=== PATIENT | female | born 1975 | race Caucasian/White ===

== ENCOUNTER → 2017-09-18 08:05 | Outpatient (CLI) | payer OTHER, SELFPAY ==
[2017-09-18 08:46] LABS: Add Manual Diff / Slide Review NO; Basophils Percent Auto 1.3 % (0-2); Hematocrit 39.1 % (36-46); Hemoglobin 13.4 g/dL (12.0-16.0); Lymphocytes Percent Auto 40.4 % (25-40); Mean Corpuscular HGB Conc 34.4 % (30-36); Mean Corpuscular Hemoglobin 30.9 PG (26-34); Mean Corpuscular Volume 89.9 fL (80-100); Monocytes Percent Auto 7.9 % (3-14); Neutrophils Absolute Auto 2100 /uL (3000-5900); Neutrophils Percent Auto 48.4 % (50-75); Platelet Count 269 X10^3/uL (150-400); Red Blood Cell Count 4.35 X10^6/uL (4.0-5.2); White Blood Cell Count 4.4 X10^3/uL (4.5-11.0)
[2017-09-18 08:54] LABS: Alanine Aminotransferase 17 IU/L (9-52); Albumin 4.8 g/dL (3.5-5.0); Albumin Globulin Ratio 1.7 (1.0-2.8); Alkaline Phosphatase 44 U/L (38-126); Aspartate Aminotransferase 19 IU/L (14-36); BUN Creatinine Ratio 21.4 (6-22); Bilirubin Total 0.5 mg/dL (0.2-1.3); Blood Urea Nitrogen 15 mg/dL (7-17); Calcium 9.4 mg/dL (8.4-10.2); Carbon Dioxide 29 mmol/L (22-32); Chloride 102 mmol/L (98-107); Cholesterol 236 mg/dL (140-199); Estimated Glomerular Filt Rate > 60.0 mL/min (>60); Globulin 2.9 g/dL (1.7-4.1); Glucose 94 mg/dL (70-100); HDL Cholesterol 71 mg/dL (40-60); HEMOLYSIS < 15 (0-50); LDL Cholesterol Calculated 145 mg/dL (<100); Potassium 4.3 mmol/L (3.4-5.1); Sodium 141 mmol/L (137-145); Total Protein 7.7 g/dL (6.3-8.2); Triglycerides 98 mg/dL (35-150); Uric Acid 4.3 mg/dL (2.5-6.2)
[2017-09-18 09:25] LABS: Free T3, Triiodothyronine Free 2.51 pg/mL (2.77-5.27); Free T4, Direct Thyroxine 0.94 ng/dL (0.78-2.19)
[2017-09-18 09:39] LABS: Thyroid Stimulating Hormone 1.45 uIU/mL (0.47-4.68)
== END ==
PROVIDERS: PCP Physician Assistant; Visit Provider Physician Assistant
DX: E78.5 Hyperlipidemia, unspecified (principal); M25.50 Pain in unspecified joint; R53.83 Other fatigue
CPT/HCPCS: 36415; 80053; 80061; 84439; 84443; 84481; 84550; 85025

== ENCOUNTER → 2018-02-27 13:26 | Outpatient (CLI) | payer OTHER, SELFPAY ==
--- NOTE | 2018-02-27 | DI.RAD.S_ITS ---
PROCEDURE: XR HAND RT MIN 3V INDICATIONS: PAIN IN RIGHT FINGER TECHNIQUE: 3 views of the hand(s) acquired. COMPARISON: None. FINDINGS: Bones: No fractures or dislocations. Carpal bones are normally aligned. No suspicious bony lesions. Soft tissues: No suspicious soft tissue calcifications. IMPRESSION: No fracture. If the patient's pain or other symptoms persist, consider further evaluation with MRI Dictated by: Caden Stafford M.D. on 02/27/2018 at 15:23 Approved by: Caden Stafford M.D. on 02/27/2018 at 15:25
== END ==
PROVIDERS: PCP Physician Assistant; Visit Provider Family Medicine
DX: M79.644 Pain in right finger(s) (principal)
CPT/HCPCS: 73130

== ENCOUNTER → 2018-05-13 10:14 | Outpatient (CLI) | payer OTHER, SELFPAY ==
--- NOTE | 2018-05-13 | DI.MG.S_ITS ---
BILATERAL DIGITAL SCREENING MAMMOGRAM 3D/2D WITH CAD: 05/13/2018 CLINICAL: Routine screening. Family history of breast cancer. Comparison is made to exams dated: 03/05/2017 mammogram, 02/08/2016 mammogram, and 11/30/2014 mammogram - [facility]. The tissue of both breasts is heterogeneously dense. This may lower the sensitivity of mammography. Current study was also evaluated with a Computer Aided Detection (CAD) system. No significant masses, calcifications, or other findings are seen in either breast. There has been no significant interval change. IMPRESSION: NEGATIVE There is no mammographic evidence of malignancy. A 1 year screening mammogram is recommended. This exam was interpreted at Station ID: [id number]. NOTE: For mammograms, a report in lay terms will be sent to the patient. Approximately 15% of breast malignancies will not be visualized mammographically. In the management of a palpable breast mass, a negative mammogram must not discourage biopsy of a clinically suspicious lesion. Electronically Signed By: Rosa Maria clay/kassie:05/13/2018 12:09:35 letter sent: Normal Exam ACR BI-RADS Category 1: Negative 3341F
== END ==
PROVIDERS: Visit Provider Physician Assistant
DX: Z12.31 Encounter for screening mammogram for malignant neoplasm of breast (principal); Z80.3 Family history of malignant neoplasm of breast
CPT/HCPCS: 77063; 77067

== ENCOUNTER → 2019-09-22 16:08 | Outpatient (CLI) | payer OTHER, SELFPAY ==
--- NOTE | 2019-09-22 16:10 | DI.MG.S_ITS ---
BILATERAL DIGITAL SCREENING MAMMOGRAM 3D/2D WITH CAD: 09/22/2019 CLINICAL: Routine screening. Family history of breast cancer. Comparison is made to exams dated: 05/13/2018 mammogram, 03/05/2017 mammogram, and 02/08/2016 mammogram - [facility]. The tissue of both breasts is heterogeneously dense. This may lower the sensitivity of mammography. Current study was also evaluated with a Computer Aided Detection (CAD) system. No significant masses, calcifications, or other findings are seen in either breast. There has been no significant interval change. IMPRESSION: NEGATIVE There is no mammographic evidence of malignancy. A 1 year screening mammogram is recommended. This exam was interpreted at Station ID: [id number]. NOTE: For mammograms, a report in lay terms will be sent to the patient. Approximately 15% of breast malignancies will not be visualized mammographically. In the management of a palpable breast mass, a negative mammogram must not discourage biopsy of a clinically suspicious lesion. Electronically Signed By: Ricardo merritt/kassie:09/22/2019 17:09:19 letter sent: Normal Exam ACR BI-RADS Category 1: Negative 3341F
== END ==
PROVIDERS: PCP Physician Assistant; Referring Provider Physician Assistant; Visit Provider Family Medicine
DX: Z12.31 Encounter for screening mammogram for malignant neoplasm of breast (principal); Z80.3 Family history of malignant neoplasm of breast
CPT/HCPCS: 77063; 77067

== ENCOUNTER → 2020-03-03 10:31 | Outpatient (CLI) | payer OTHER, SELFPAY ==
[2020-03-03] MEDS: COVID-19 VACC #1, MRNA(MOD) 100 MCG/0.5 ML VIAL IM (10:39)
== END ==
PROVIDERS: PCP Physician Assistant; Visit Provider Internal Medicine
DX: Z23 Encounter for immunization (principal)
CPT/HCPCS: 0011A; 91301

== ENCOUNTER → 2020-03-31 10:44 | Outpatient (CLI) | payer OTHER, SELFPAY ==
[2020-03-31] MEDS: COVID-19 VACC #2, MRNA(MOD) 100 MCG/0.5 ML VIAL IM (10:50)
== END ==
PROVIDERS: PCP Physician Assistant; Visit Provider Internal Medicine
DX: Z23 Encounter for immunization (principal)
CPT/HCPCS: 0012A; 91301

== ENCOUNTER → 2020-11-06 13:08 | Outpatient (ROUT) | payer OTHER, SELFPAY ==
[2020-11-06 16:11] LABS: COVID19 -Nasal RAPID Negative (Negative)
== END ==
PROVIDERS: PCP Physician Assistant; Visit Provider Family Medicine
DX: Z20.822 Contact with and (suspected) exposure to COVID-19 (principal)
CPT/HCPCS: 87635

== ENCOUNTER → 2021-03-05 09:26 | Outpatient (CLI) | payer OTHER, SELFPAY ==
--- NOTE | 2021-03-05 | DI.MG.S_ITS ---
BILATERAL DIGITAL SCREENING MAMMOGRAM 3D/2D WITH CAD: 03/05/2021 CLINICAL: Routine screening. Family history of breast cancer. Comparison is made to exams dated: 09/22/2019 mammogram, 05/13/2018 mammogram, and 03/05/2017 mammogram - [facility]. The tissue of both breasts is heterogeneously dense. This may lower the sensitivity of mammography. Current study was also evaluated with a Computer Aided Detection (CAD) system. No significant masses, calcifications, or other findings are seen in either breast. There has been no significant interval change. IMPRESSION: NEGATIVE There is no mammographic evidence of malignancy. A 1 year screening mammogram is recommended. This exam was interpreted at Station ID: [id number]. NOTE: For mammograms, a report in lay terms will be sent to the patient. Approximately 15% of breast malignancies will not be visualized mammographically. In the management of a palpable breast mass, a negative mammogram must not discourage biopsy of a clinically suspicious lesion. Electronically Signed By: Pavan rush/kassie:03/05/2021 10:55:57 letter sent: Normal Exam ACR BI-RADS Category 1: Negative 3341F
== END ==
PROVIDERS: PCP Family Medicine; Referring Provider Family Medicine; Visit Provider Family Medicine
DX: Z12.31 Encounter for screening mammogram for malignant neoplasm of breast (principal); Z80.3 Family history of malignant neoplasm of breast
CPT/HCPCS: 77063; 77067

== ENCOUNTER → 2022-02-19 13:56 | Outpatient (CLI) | payer OTHER, SELFPAY ==
--- NOTE | 2022-02-26 16:23 | DIET.CONS ---
Dietary Consultation Note Pt seen on 02/19/22 46Y perimenopausal F attending RD visit for help with HLD and overweight (BMI 26.5). 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 Usual Day: first meal between 11-12pm Lunch: greens with 4-5oz ground chicken and peppers and avocado, tiny bit of sour cream Sn 3:30pm or 4pm: cheese and crackers or hummus c crackers Dinner: farro salad with chard, kohli peppers, leeks, lemon dressing- 4-5oz lean pork chop stops eating 7:30-8pm and fasts until 11am drinks water and coffee on splurge-turkey sandwich with avocado on GF bread Snacks at night: chocolate squares or dried pineapple, popcorn tried keeping to 1200-1400kcals/d on [employer] and [employer]. Pt would like sustainable plan she can follow for the rest of her life. RD Impression: Pt consuming 2 meals and 1 snack daily, generally following 16h fast. Pt with very healthy nutrient rich diet, however, possibly low in dietary fiber depending on the day (often relies on large salads or saut?ed greens for fiber if not eating beans/whole grains). Pt diet moderately low in carbohydrates depending on the day, but adequate in dietary protein. Nutrition Dx: altered nutrition related laboratory values (LDL, BMI) r/t inadequate intake dietary fiber and metabolism changes in menopause aeb pt with BMI 26.5, pt with elevated LDL cholesterol, pt reliant on leafy greens for fiber intake. Interventions: 1. Reiterated pts good diet and exercise routine. Educated pt on menopausal changes including weight gain and fat redistribution. 2. Educated pt on dietary fiber sources and goal of 30g/d. Rec pt have 10g c lunch, 10g c dinner and 10g with snacks to distribute fiber throughout day. 3. Rec pt consume protein following workout ~20g in form of choice. 4. Educated about hunger/fullness scale. Pt will eat at 3 and stop at 8 and notice when she eats at 5. F/u in 4w to continue education and monitor progress. Electronically Signed by: Bailey Monterroso 02/19/22 16:23 Clinical Dietitian [address] [id number]
== END ==
PROVIDERS: Absent Provider Family Medicine; Family Provider Family Medicine; PCP Family Medicine; Referring Provider Family Medicine; Visit Provider Family Medicine
DX: E78.5 Hyperlipidemia, unspecified (principal); E66.3 Overweight; Z68.26 Body mass index [BMI] 26.0-26.9, adult; Z71.3 Dietary counseling and surveillance
CPT/HCPCS: 97802

== ENCOUNTER → 2022-03-04 14:27 | Outpatient (CLI) | payer OTHER, SELFPAY ==
--- NOTE | 2022-03-04 14:29 | DIET.OUTPTC ---
Dietary Outpatient Consultation Note Consultation Date: 03/04/2022 46y F attending f/u nutrition visit for hyperlipidemia. Pt reports usual day includes 20g fiber, she has mindfully increased this to 30g and noticed she feels much phillips after a meal. Pt choosing healthy, whole fiber foods such as farro, artichoke hearts and beans. Pt notices BMs are regular without any issues or excessive gassiness. Pt getting lipid labs drawn this week, will review in 6w to adjust interventions as needed. Electronically Signed by: Bailey Monterroso 03/04/22 14:29 Clinical Dietitian [address] [id number]
== END ==
PROVIDERS: Family Provider Family Medicine; PCP Family Medicine; Referring Provider Family Medicine; Visit Provider Family Medicine
DX: E78.5 Hyperlipidemia, unspecified (principal); Z71.3 Dietary counseling and surveillance
CPT/HCPCS: 97803

== ENCOUNTER → 2022-03-08 09:11 | Outpatient (CLI) | payer OTHER, SELFPAY ==
[2022-03-08 10:52] LABS: Cholesterol 216 mg/dL (140-199); HDL Cholesterol 66 mg/dL (40-60); LDL Cholesterol Calculated 136 mg/dL (<100); Triglycerides 71 mg/dL (35-150)
[2022-03-08 11:21] LABS: TSH w/ Reflex to FT4 0.94 uIU/mL (0.47-4.68)
== END ==
PROVIDERS: Family Provider Family Medicine; PCP Family Medicine; Referring Provider Family Medicine; Visit Provider Family Medicine
DX: E78.5 Hyperlipidemia, unspecified (principal); F41.9 Anxiety disorder, unspecified; R00.2 Palpitations
CPT/HCPCS: 36415; 80061; 84443

== ENCOUNTER → 2022-06-11 11:50 | Outpatient (CLI) | payer OTHER, SELFPAY ==
--- NOTE | 2022-06-11 11:52 | DI.MG.S_ITS ---
BILATERAL DIGITAL SCREENING MAMMOGRAM 3D/2D WITH CAD: 06/11/2022 CLINICAL: Routine screening. Family history of breast cancer. Comparison is made to exams dated: 03/05/2021 mammogram, 09/22/2019 mammogram, and 05/13/2018 mammogram - [facility]. Both breasts are heterogeneously dense, which may obscure small masses (category c / 51-75% glandular tissue). Current study was also evaluated with a Computer Aided Detection (CAD) system. No significant masses, calcifications, or other findings are seen in either breast. There has been no significant interval change. IMPRESSION: NEGATIVE There is no mammographic evidence of malignancy. A 1 year screening mammogram is recommended. Based on the Tyrer Cuzick model (a risk assessment model) the patient's lifetime risk is 15.7% and her 10 year risk is 3.6%. According to the ACR, ACS, and NCCN guidelines, an annual breast MRI exam along with mammogram is recommended if the patient's lifetime risk is 20% or greater. This exam was interpreted at Station ID: [id number]. NOTE: For mammograms, a report in lay terms will be sent to the patient. Approximately 15% of breast malignancies will not be visualized mammographically. In the management of a palpable breast mass, a negative mammogram must not discourage biopsy of a clinically suspicious lesion. Electronically Signed By: Rosa Maria clay/kassie:06/11/2022 12:27:35 letter sent: Normal Exam ACR BI-RADS Category 1: Negative 3341F
== END ==
PROVIDERS: Family Provider Family Medicine; PCP Family Medicine; Referring Provider Family Medicine; Visit Provider Family Medicine
DX: Z12.31 Encounter for screening mammogram for malignant neoplasm of breast (principal); Z80.3 Family history of malignant neoplasm of breast
CPT/HCPCS: 77063; 77067

== ENCOUNTER 2023-02-20 09:38 | Day surgery (SDC) | payer OTHER, SELFPAY ==
[2023-02-20] MEDS: LACTATED RINGERS 1,000 ML 100 ML IV (10:21)
[2023-02-20 10:23] VITALS: BP 129/79; PULSE 79; RESP 16; TEMP 37; O2SAT 96; BMI 26.2
--- NOTE | 2023-02-20 11:11 | P.HP_ITS ---
History of Present Illness History of Present Illness Chief complaint: Colonoscopy Narrative: Ibeth is a 47-year-old woman here for colonoscopy for colon cancer screening. She has never had 1 before. No family history of colon cancer. She has a tendency towards constipation and she will occasionally notice bright red blood after a hard bowel movement [facility] Medical History (Updated 02/20/23 @ 11:12 by Shashi Blair MD) Vertigo (~2019) Palpitations (~2020) Hx of fracture of nose (Unknown) Hyperlipemia (Unknown) Anxiety (Unknown) Allergic rhinitis (Unknown) Generalized headaches (Unknown) Chickenpox (1983) Frequent infections (Unknown) Abnormal Pap smear of cervix (1991) Irregular heart beat (Unknown) Surgical History (Updated 03/29/21 @ 19:17 by Samia Alcazar) Anesthesia Status post tubal ligation (2007) Family History (Updated 03/29/21 @ 19:17 by Samia Alcazar) Father History of smoking History of alcohol abuse History of drug abuse Cancer Grandmother History of breast cancer Mother History of hypertension History of alcohol abuse History of drug abuse Social History household members: spouse Smoking Status: Never smoker second hand exposure: No alcohol intake: current substance use type: marijuana (I smoke weed once in a blue chew.) Meds Home Medications and Allergies Home Medications Medication Instructions Recorded Confirmed Type Biest 0.25 mg topical DAILY #30 mg 07/16/22 12/30/22 Rx DHEA 5 mg PO DAILY #30 caps 07/16/22 12/30/22 Rx Gut survival Probiotic 1 cap PO DAILY #30 caps 07/16/22 12/30/22 Rx Progesterone 75 mg PO .qhs #30 caplets 10/08/22 12/30/22 Rx sodium,potassium,mag sulfates 17.5 See Rx Instructions PO .COMPLEX 12/17/22 12/30/22 Rx gram-3.13 gram-1.6 gram oral soln #354 mL (Suprep Bowel Prep Kit) alprazolam 0.25 mg tablet 0.25 mg PO .QDAY PRN anxiety #30 12/30/22 12/30/22 Rx tabs ibuprofen 600 mg tablet 600 mg PO TID PRN pain #90 tabs 12/30/22 12/30/22 Rx methocarbamol 500 mg tablet 500 mg PO TID PRN muscle spasm #30 12/30/22 12/30/22 Rx tabs triamcinolone acetonide 0.1 % See Rx Instructions topical BID 12/30/22 12/30/22 Rx topical cream #30 grams ondansetron HCl 4 mg tablet 4 mg PO Q8H PRN nausea and 01/14/23 Rx vomiting #30 tabs Allergies Allergy/AdvReac Type Severity Reaction Status Date / Time No Known Drug Allergies Allergy Verified 12/30/22 15:57 Exam Vital Signs (past 8 hours): - 02/20/23 10:23 Temperature 98.6 F Pulse Rate 79 Respiratory Rate 16 Blood Pressure 129/79 Pulse Oximetry 96 Oxygen Delivery Method Room Air Oxygen Delivery Method Room Air Const General: healthy appearing and No acute distress Resp Effort & Inspection: normal respiratory effort Assessment & Plan Assessment and plan (1) Colon cancer screening: Status: Acute Plan We reviewed the risks and benefits of colonoscopy for colon cancer screening and she would like to proceed.
--- NOTE | 2023-02-20 12:34 | PM.OP.COLON ---
Operative Date/Time/Diagnoses Date of procedure: 02/20/23 Time of procedure: 12:34 Pre-op diagnosis: Colon cancer screening Post-op diagnosis: same Procedure & Clinicians Study performed: Colonoscopy Same procedure as scheduled: Yes Surgeon: Shashi Blair Procedure Notes Procedure in detail: Surgeon: Shashi Blair MD Anesthesia: Dany Colon D.O. Procedure: The patient was brought to the endoscopy suite, placed in left lateral decubitus position. The patient was connected to monitoring devices. A time-out was performed. Sedation was administered. Once the patient was adequately sedated, a digital rectal exam was performed and was normal. The scope was then inserted and advanced to the cecum where the appendiceal orifice was identified and photographed. The scope was then slowly withdrawn over greater than 6 minutes. The mucosa was thoroughly inspected. No abnormalities were seen. The scope was retroflexed in the rectum. No abnormalities were seen in the rectum. The scope was straightened and removed. The patient was awakened and brought to recovery. Scope withdrawal time: 8 minutes Sedation time: 12 minutes EBL: 0 Findings: Normal colon Post-procedure Recommendations: Colonoscopy in 10 years Disposition: PACU
[2023-02-20 12:36] VITALS: BP 114/79; PULSE 84; RESP 16; TEMP 36.6; O2SAT 98
[2023-02-20 12:39] VITALS: BP 125/83; PULSE 76; RESP 11; O2SAT 98
[2023-02-20 12:45] VITALS: BP 100/77; PULSE 68; RESP 16; TEMP 36.7; O2SAT 98
== END 2023-02-20 12:57 | disposition home or self-care (01) ==
PROVIDERS: Family Provider Family Medicine; PCP Family Medicine; Referring Provider Surgery; Visit Provider Surgery
PROC: 0DJD8ZZ Inspection of Lower Intestinal Tract, Via Natural or Artificial Opening Endoscopic (ICD-10-PCS; CPT 45378; principal; 2023-02-20 10:45)
DX: Z12.11 Encounter for screening for malignant neoplasm of colon (principal)
CPT/HCPCS: 45378; J2704

== ENCOUNTER → 2023-03-21 10:16 | Outpatient (CLI) | payer OTHER, SELFPAY ==
[2023-03-21 11:39] LABS: Add Manual Diff / Slide Review NO; Basophils Absolute Auto 100 /uL (0-100); Basophils Percent Auto 1.1 % (0-2); Eosinophils Absolute Auto 0 /uL (0-450); Hematocrit 38.1 % (36-46); Hemoglobin 12.9 g/dL (12.0-16.0); Lymphocytes Absolute Auto 1800 /uL (1100-4500); Lymphocytes Percent Auto 39.1 % (25-40); Mean Corpuscular HGB Conc 33.8 % (30-36); Mean Corpuscular Hemoglobin 30.2 PG (26-34); Mean Corpuscular Volume 89.3 fL (80-100); Monocytes Absolute Auto 400 /uL (0-900); Monocytes Percent Auto 8.9 % (3-14); Neutrophils Absolute Auto 2300 /uL (1500-7000); Neutrophils Percent Auto 49.9 % (50-75); Platelet Count 281 X10^3/uL (150-400); Red Blood Cell Count 4.26 X10^6/uL (4.0-5.2); White Blood Cell Count 4.6 X10^3/uL (4.5-11.0)
[2023-03-21 11:51] LABS: Alanine Aminotransferase 20 IU/L (<35); Albumin 4.6 g/dL (3.5-5.0); Albumin Globulin Ratio 1.5 (1.0-2.8); Alkaline Phosphatase 44 U/L (38-126); Aspartate Aminotransferase 25 IU/L (14-36); BUN Creatinine Ratio 19.3 (6-22); Bilirubin Total 0.6 mg/dL (0.2-1.3); Blood Urea Nitrogen 11 mg/dL (7-17); Calcium 8.8 mg/dL (8.4-10.2); Carbon Dioxide 24 mmol/L (22-32); Chloride 105 mmol/L (98-107); Cholesterol 224 mg/dL (140-199); Estimated Glomerular Filt Rate > 60 mL/min (>60); Globulin 3.1 g/dL (1.7-4.1); Glucose 95 mg/dL (70-100); HDL Cholesterol 68 mg/dL (40-60); HEMOLYSIS < 15 (0-50); LDL Cholesterol Calculated 143 mg/dL (<100); Lactate Dehydrogenase 139 U/L (120-246); Potassium 4.6 mmol/L (3.4-5.1); Sodium 140 mmol/L (137-145); Total Protein 7.7 g/dL (6.3-8.2); Triglycerides 67 mg/dL (35-150)
[2023-03-21 12:22] LABS: TSH w/ Reflex to FT4 0.66 uIU/mL (0.47-4.68)
[2023-03-23 09:40] LABS: Apolipoprotein B 104 mg/dL (<90)
== END ==
PROVIDERS: Family Provider Family Medicine; PCP Family Medicine; Referring Provider Family Medicine; Visit Provider Family Medicine
DX: E78.5 Hyperlipidemia, unspecified (principal); R00.2 Palpitations; E66.3 Overweight; F41.9 Anxiety disorder, unspecified
CPT/HCPCS: 36415; 80053; 80061; 82172; 83615; 84443; 85025

== ENCOUNTER → 2023-09-10 07:59 | Outpatient (CLI) | payer OTHER, SELFPAY ==
--- NOTE | 2023-09-10 08:00 | DI.MG.S_ITS ---
BILATERAL DIGITAL SCREENING MAMMOGRAM 3D/2D WITH CAD: 09/10/2023 CLINICAL: Routine screening. Family history of breast cancer. Comparison is made to exams dated: 06/11/2022 mammogram, 03/05/2021 mammogram, 09/22/2019 mammogram, and 05/13/2018 mammogram - [facility]. Both breasts are heterogeneously dense, which may obscure small masses (category c / 51-75% glandular tissue). Current study was also evaluated with a Computer Aided Detection (CAD) system. No significant masses, calcifications, or other findings are seen in either breast. There has been no significant interval change. IMPRESSION: NEGATIVE There is no mammographic evidence of malignancy. A 1 year screening mammogram is recommended. Based on the Tyrer Cuzick model (a risk assessment model) the patient's lifetime risk is 15.6% and her 10 year risk is 3.7%. According to the ACR, ACS, and NCCN guidelines, an annual breast MRI exam along with mammogram is recommended if the patient's lifetime risk is 20% or greater. This exam was interpreted at Station ID: [id number]. NOTE: For mammograms, a report in lay terms will be sent to the patient. Approximately 15% of breast malignancies will not be visualized mammographically. In the management of a palpable breast mass, a negative mammogram must not discourage biopsy of a clinically suspicious lesion. Electronically Signed By: Kiran collado/kassie:09/10/2023 11:00:38 letter sent: Normal Exam ACR BI-RADS Category 1: Negative 3341F
== END ==
PROVIDERS: Family Provider Family Medicine; PCP Family Medicine; Referring Provider Family Medicine; Visit Provider Family Medicine
DX: Z12.31 Encounter for screening mammogram for malignant neoplasm of breast (principal); Z80.3 Family history of malignant neoplasm of breast; R92.333 Mammographic heterogeneous density, bilateral breasts
CPT/HCPCS: 77063; 77067

== ENCOUNTER → 2023-12-15 08:32 | Outpatient (CLI) | payer OTHER, SELFPAY ==
[2023-12-15 09:52] LABS: Cholesterol 234 mg/dL (140-199); HDL Cholesterol 91 mg/dL (40-60); LDL Cholesterol Calculated 130 mg/dL (<100); Triglycerides 63 mg/dL (35-150)
[2023-12-16 03:12] LABS: Apolipoprotein B 99 mg/dL (<90)
== END ==
PROVIDERS: Family Provider Family Medicine; PCP Family Medicine; Referring Provider Family Medicine; Visit Provider Family Medicine
DX: E78.5 Hyperlipidemia, unspecified (principal); E66.3 Overweight; Z68.25 Body mass index [BMI] 25.0-25.9, adult; F41.9 Anxiety disorder, unspecified
CPT/HCPCS: 36415; 80061; 82172

== ENCOUNTER 2024-06-29 11:24 | Emergency (ER) | payer OTHER, SELFPAY ==
[2024-06-29 11:26] VITALS: BP 149/92; PULSE 75; RESP 16; TEMP 37; O2SAT 100; BMI 25.2
--- NOTE | 2024-06-29 11:49 | ED_ITS ---
HPI - GI Bleed <Johanna Ochoa PA-C - Last Filed: 06/29/24 14:43> General Chief complaint: GI Bleed Stated complaint: rectal bleeding Time Seen by Provider: 06/29/24 11:48 Source: patient Mode of arrival: Ambulatory History of Present Illness HPI Narrative: This is a 49-year-old woman with a history of previous rectal bleeding, hyperlipidemia, anxiety who presents with concern for 3 episodes of bright red blood per rectum. Patient states this 1st occurred on Friday or of last week about 5 days ago. And occurred again on Friday and again this morning. She has otherwise been having normal bowel movements. She states that the bleeding happens after bowel movements and there does not seem to be blood mixed in with her stool. She does endorse a distant history of problems with GERD but states these symptoms have been well controlled with a probiotic and a diet that includes fermented foods. She endorses that she is perimenopausal and her periods are generally fairly regular every 24-28 days and that most recent symptoms started shortly after her last menses ended last week. She does state that a few days prior to these symptoms starting last week she also developed some tenderness and swelling to her breasts on the sides more pronounced on the left. She has an ultrasound scheduled to evaluate this tomorrow and has already spoken to her PCP about it. She states that the last time she had rectal bleeding this also happened. She has never had an upper endoscopy but states that her colonoscopy last year was normal. She notes frustration over nondiagnostic previous ER visits and is interested in having testing done to evaluate for gastrointestinal cancer. She denies any family history of this. She is disinterested in having a CT scan today as she had 1 a little over a year ago that was negative other than some mild colonic wall thickening. She denies any abdominal or flank pain, nausea, vomiting, coughing or vomiting blood, urinary symptoms, fevers, chills, vaginal bleeding, diarrhea or constipation or other symptoms. Related Data Previous Rx's Medication Instructions Recorded DHEA 5 mg PO DAILY #30 caps 07/16/22 Gut survival Probiotic 1 cap PO DAILY #30 caps 07/16/22 triamcinolone acetonide 0.1 % See Rx Instructions topical BID 12/30/22 topical cream #30 grams ondansetron HCl 4 mg tablet 4 mg PO Q8H PRN nausea and 01/14/23 vomiting #30 tabs ibuprofen 600 mg tablet 600 mg PO TID PRN pain #90 tabs 12/03/23 Biest 0.25 mg topical DAILY #1 applic 12/18/23 Progesterone 75 mg PO .qhs #90 caplets 12/18/23 alprazolam 0.25 mg tablet 0.25 mg PO .QDAY PRN anxiety #30 12/18/23 tabs methocarbamol 500 mg tablet 500 mg PO TID PRN muscle spasm #30 12/18/23 tabs phentermine 15 mg capsule 30 mg (2 x 15 mg) PO DAILY #60 caps 12/18/23 fluconazole 150 mg tablet 150 mg PO Q3D 2 doses #2 tabs 05/16/24 Allergies Allergy/AdvReac Type Severity Reaction Status Date / Time No Known Drug Allergies Allergy Verified 06/29/24 11:26 Review of Systems <Johanna Ochoa PA-C - Last Filed: 06/29/24 14:43> Review of Systems Narrative: See HPI Patient History <Johanna Ochoa PA-C - Last Filed: 06/29/24 14:43> Medical History Vertigo (~2019) Palpitations (~2020) Hx of fracture of nose (Unknown) Hyperlipemia (Unknown) Anxiety (Unknown) Allergic rhinitis (Unknown) Generalized headaches (Unknown) Chickenpox (1983) Frequent infections (Unknown) Abnormal Pap smear of cervix (1991) Irregular heart beat (Unknown) Surgical History Anesthesia Status post tubal ligation (2007) Family History Father History of smoking History of alcohol abuse History of drug abuse Cancer Grandmother History of breast cancer Mother History of hypertension History of alcohol abuse History of drug abuse Social History household members: spouse Smoking Status: Never smoker second hand exposure: No alcohol intake: current substance use type: marijuana (I smoke weed once in a blue chew.) Smoking Status: Never smoker alcohol intake frequency: holidays/special occasions only Exam <Johanna Ochoa PA-C - Last Filed: 06/29/24 14:43> Narrative Exam Narrative: GENERAL: 49 year old patient appears stated age. Well-developed patient, in mild distress. HEAD: Atraumatic. Normocephalic. EYES: Pupils equal round and reactive. Extraocular motions intact. No scleral icterus. No injection or drainage. ENT: Nose without bleeding, purulent drainage. Airway patent. NECK: Trachea midline. Non tender CARDIOVASCULAR: Regular rate and rhythm without murmurs, gallops, or rubs. RESPIRATORY: Clear to auscultation. Breath sounds equal bilaterally. No wheezes, rales, or rhonchi. GASTROINTESTINAL: Abdomen soft, non-tender, nondistended, no CVA tenderness. RECTAL: External exam of the anus normal in appearance, no evidence of hemorrhoids or swelling/inflammation, or rectal fissure; nontender. Digital rectal exam w/o bleeding or hemorrhoids found. Occult blood test negative; but no visible stool obtained from rectum. EXTREMITIES: No edema or joint tenderness. BACK: Nontender without deformity or crepitance. No flank tenderness. NEURO: AOx3. SKIN: No rash or erythema of visible areas Initial Vital Signs Initial Vital Signs: Vital Signs Temperature 98.6 F 06/29/24 11:26 Pulse Rate 75 06/29/24 11:26 Respiratory Rate 16 06/29/24 11:26 Blood Pressure 149/92 H 06/29/24 11:26 Pulse Oximetry 100 06/29/24 11:26 Oxygen Delivery Method Room Air 06/29/24 11:26 <Fátima Pitt DO - Last Filed: 06/29/24 15:38> Initial Vital Signs Initial Vital Signs: Vital Signs Temperature 98.6 F 06/29/24 11:26 Pulse Rate 75 06/29/24 11:26 Respiratory Rate 16 06/29/24 11:26 Blood Pressure 149/92 H 06/29/24 11:26 Pulse Oximetry 100 06/29/24 11:26 Oxygen Delivery Method Room Air 06/29/24 11:26 Course <Johanna Ochoa PA-C - Last Filed: 06/29/24 14:43> Orders Ordered: ED Orders 06/29/24 12:38 Complete Blood Count AUTO DIFF Stat Comprehensive Metabolic Panel Stat PTT Partial Thromboplastin Kody Stat Prothrombin Time INR Stat Type and Screen Stat 06/29/24 13:36 CRP [C-Reactive Protein Quant] Stat Discontinued Medications Ondansetron HCl (Ondansetron 4 Mg/2 Ml Inj) 4 mg IV NOW PRN PRN Reason: Nausea And Vomiting Ondansetron HCl (Ondansetron 4 Mg Odt) 4 mg PO NOW PRN PRN Reason: Nausea And Vomiting Vital Signs Vital signs: Vital Signs - 8 hr 06/29/24 11:26 06/29/24 13:46 06/29/24 13:53 Temperature 98.6 F Pulse Rate 75 72 76 Respiratory Rate 16 16 Blood Pressure 149/92 H Pulse Oximetry 100 100 99 Oxygen Delivery Method Room Air 06/29/24 13:53 06/29/24 14:00 06/29/24 14:00 Temperature Pulse Rate 67 Respiratory Rate 17 Blood Pressure 141/87 H 131/80 Pulse Oximetry 99 Oxygen Delivery Method <Fátima Pitt DO - Last Filed: 06/29/24 15:38> Orders Ordered: ED Orders 06/29/24 12:38 Complete Blood Count AUTO DIFF Stat Comprehensive Metabolic Panel Stat PTT Partial Thromboplastin Kody Stat Prothrombin Time INR Stat Type and Screen Stat 06/29/24 13:36 CRP [C-Reactive Protein Quant] Stat Discontinued Medications Ondansetron HCl (Ondansetron 4 Mg/2 Ml Inj) 4 mg IV NOW PRN PRN Reason: Nausea And Vomiting Ondansetron HCl (Ondansetron 4 Mg Odt) 4 mg PO NOW PRN PRN Reason: Nausea And Vomiting Vital Signs Vital signs: Vital Signs - 8 hr 06/29/24 11:26 06/29/24 13:46 06/29/24 13:53 Temperature 98.6 F Pulse Rate 75 72 76 Respiratory Rate 16 16 Blood Pressure 149/92 H Pulse Oximetry 100 100 99 Oxygen Delivery Method Room Air 06/29/24 13:53 06/29/24 14:00 06/29/24 14:00 Temperature Pulse Rate 67 Respiratory Rate 17 Blood Pressure 141/87 H 131/80 Pulse Oximetry 99 Oxygen Delivery Method MDM - GI Bleed <Johanna Ochoa PA-C - Last Filed: 06/29/24 14:43> Differential Diagnosis Differential diagnosis: Likely hemorrhoids, Upper gastrointestinal hemorrhage, Lower gastrointestinal hemorrhage and other (Rectal bleeding) Medical Records Attestation: I reviewed the patient's medical records. Lab Data Attestation: I reviewed the patient's lab results. 06/29/24 12:38 06/29/24 12:38 Labs: Lab Results 06/29/24 06/29/24 Range/Units 12:38 13:36 WBC 4.9 (4.5-11.0) X10^3/uL RBC 4.44 (4.0-5.2) X10^6/uL Hgb 13.6 (12.0-16.0) g/dL Hct 39.7 (36-46) % MCV 89.5 (80-100) fL MCH 30.5 (26-34) PG MCHC 34.1 (30-36) % RDW 12.3 (11.6-14.8) % Plt Count 275 (150-400) X10^3/uL Neut % (Auto) 54.2 (50-75) % Lymph % (Auto) 37.2 (25-40) % [place] % (Auto) 6.4 (3-14) % Eos % (Auto) 1.3 L (2-4) % Baso % (Auto) 0.9 (0-2) % Neut # (Auto) 2700 (2287-5669) /uL Lymph # (Auto) 1800 (5707-4752) /uL [place] # (Auto) 300 (0-900) /uL Eos # (Auto) 100 (0-450) /uL Baso # (Auto) 0 (0-100) /uL PT 12.0 (9.4-12.5) SECONDS INR 1.1 (0.9-1.3) APTT 33 (25.1-36.5) SECONDS Sodium 138 (137-145) mmol/L Potassium 3.8 (3.4-5.1) mmol/L Chloride 101 (98-107) mmol/L Carbon Dioxide 27 (22-32) mmol/L BUN 11 (7-17) mg/dL Creatinine 0.68 (0.52-1.04) mg/dL Estimated GFR > 60 (>60) mL/min BUN/Creatinine Ratio 16.2 (6-22) Glucose 90 (70-99) mg/dL Calcium 9.2 (8.4-10.2) mg/dL Total Bilirubin 0.5 (0.2-1.3) mg/dL AST 26 (14-36) IU/L ALT 16 (<35) IU/L Alkaline Phosphatase 42 (38-126) U/L C-Reactive Protein < 0.5 (<1.0) mg/dL Total Protein 7.8 (6.3-8.2) g/dL Albumin 4.9 (3.5-5.0) g/dL Globulin 2.9 (1.7-4.1) g/dL Albumin/Globulin Ratio 1.7 (1.0-2.8) Blood Type A Positive Antibody Screen Negative Point of Care Testing Stool Occult Blood Negative Urine Dip Bedside Urine Glucose Negative Bedside Urine Bilirubin - Negative Bedside Urine Ketone - Negative Urine Specific [place] 1.010 Bedside Urine Occult Blood - Negative Bedside Urine pH 6.0 Bedside Urine Protein - Negative Bedside Urine Urobilinogen - Negative Bedside Urine Nitrite - Negative Bedside Urine Leukocytes - Negative Esterase Treatment and disposition Shared decision making:: Shared decision-making was used in determining a plan for evaluation care today in the emergency department. Patient declined a CT scan which is reasonable given her symptoms have been mild and she has no abdominal pain. Also declined IV. Requested cancer blood test today but these are deferred to her PCP. MDM Narrative Medical decision making narrative: A 49-year-old female with a history of previous rectal bleeding, anxiety, hyperlipidemia presents today with concern for rectal bleeding, 3 episodes in the last 6-7 days with no persistent bleeding. Rectal exam does not reveal an obvious source for her bleeding. She has no ongoing bleeding. Labs obtained show no evidence of anemia. CRP also obtained as she does have some history of colonic inflammation on a previous CT scan. CRP is not elevated. Patient declined a CT scan I think this is reasonable given her symptoms. She had specific concern for gastrointestinal cancers. Does have a distant history of GERD which she feels is well managed and did senior counsel her to talk to her PCP about possibly having an upper endoscopy scope done to further evaluate. Although with bright red blood per rectum I think it is unlikely that her recent bleeding is related to an upper GI problem. She declined an IV today in the emergency department but did have blood draws to obtain labs. Exam was otherwise unremarkable with no abdominal tenderness and I have low suspicion for acute intra-abdominal pathology that requires surgery emergently or advanced imaging today. She has already got an appointment scheduled to see her PCP in 2 days' time on and will follow up with him regarding additional labs or imaging studies. Return precautions provided, follow-up plan discussed, all questions answered. <Fátima Osbaldo Pitt, DO - Last Filed: 06/29/24 15:38> Lab Data Labs: Lab Results 06/29/24 06/29/24 Range/Units 12:38 13:36 WBC 4.9 (4.5-11.0) X10^3/uL RBC 4.44 (4.0-5.2) X10^6/uL Hgb 13.6 (12.0-16.0) g/dL Hct 39.7 (36-46) % MCV 89.5 (80-100) fL MCH 30.5 (26-34) PG MCHC 34.1 (30-36) % RDW 12.3 (11.6-14.8) % Plt Count 275 (150-400) X10^3/uL Neut % (Auto) 54.2 (50-75) % Lymph % (Auto) 37.2 (25-40) % [place] % (Auto) 6.4 (3-14) % Eos % (Auto) 1.3 L (2-4) % Baso % (Auto) 0.9 (0-2) % Neut # (Auto) 2700 (7026-4531) /uL Lymph # (Auto) 1800 (7045-4716) /uL [place] # (Auto) 300 (0-900) /uL Eos # (Auto) 100 (0-450) /uL Baso # (Auto) 0 (0-100) /uL PT 12.0 (9.4-12.5) SECONDS INR 1.1 (0.9-1.3) APTT 33 (25.1-36.5) SECONDS Sodium 138 (137-145) mmol/L Potassium 3.8 (3.4-5.1) mmol/L Chloride 101 (98-107) mmol/L Carbon Dioxide 27 (22-32) mmol/L BUN 11 (7-17) mg/dL Creatinine 0.68 (0.52-1.04) mg/dL Estimated GFR > 60 (>60) mL/min BUN/Creatinine Ratio 16.2 (6-22) Glucose 90 (70-99) mg/dL Calcium 9.2 (8.4-10.2) mg/dL Total Bilirubin 0.5 (0.2-1.3) mg/dL AST 26 (14-36) IU/L ALT 16 (<35) IU/L Alkaline Phosphatase 42 (38-126) U/L C-Reactive Protein < 0.5 (<1.0) mg/dL Total Protein 7.8 (6.3-8.2) g/dL Albumin 4.9 (3.5-5.0) g/dL Globulin 2.9 (1.7-4.1) g/dL Albumin/Globulin Ratio 1.7 (1.0-2.8) Blood Type A Positive Antibody Screen Negative Point of Care Testing Stool Occult Blood Negative Urine Dip Bedside Urine Glucose Negative Bedside Urine Bilirubin - Negative Bedside Urine Ketone - Negative Urine Specific [place] 1.010 Bedside Urine Occult Blood - Negative Bedside Urine pH 6.0 Bedside Urine Protein - Negative Bedside Urine Urobilinogen - Negative Bedside Urine Nitrite - Negative Bedside Urine Leukocytes - Negative Esterase Discharge Plan Departure Patient Disposition: Home Clinical Impression: Bright red rectal bleeding Instructions: Gastrointestinal Bleeding Activity Restrictions/Additional Instructions: *You have been diagnosed with [rectal bleeding/GI bleeding] *What to do: *Please continue to take your regular medications as directed. [ ] New medication prescriptions sent to your pharmacy: [ ] [ ] New medication written as a paper prescription [ X] No new medications given *Please follow up with your primary care provider in 2-3 days, call for an appointment. Let them know you were seen in the Emergency Department and that we ask that you be seen in follow up. We will electronically transmit a record of today's note if your PCP is in our system. You came in today with concern for 3 episodes in the last 6 days of blood from your rectum that was bright in color. Your labs today look good there is no evidence of anemia. We also checked an inflammatory marker that was not elevated. You disregard having a CT scan today as you have had 1 in the past that did not reveal a source of bleeding when you had this happen previously. I think based on your symptoms this is reasonable you can certainly talk to your primary care provider about having this imaging done however as we discussed a repeat colonoscopy and possibly an upper GI endoscopy would be more valuable to assess for the cause of gastrointestinal bleeding. We did do a digital rectal exam today and I did not note hemorrhoids on your exam. If you have heavier or persistent bleeding over the next few days prior to your primary care appointment on please make sure you seek re- evaluation. And specifically watch for symptoms of heavy bleeding, dizziness, lightheadedness or any other symptoms of concern. I hope you feel better and get some answers soon. *If you do not have a primary care provider please contact the [facility] Resource line at [phone]. They will ask some questions about your medical history and help get you set up with a doctor in the community. *Return to Emergency Department if you should have any new, worsening or concerning symptoms, such as [fever greater than 101 F, shaking chills, worsening pain, persistent vomiting or other bothersome symptoms] Prescriptions: No Action fluconazole 150 mg tablet 150 mg PO Q3D Qty: 2 0RF DHEA 5 mg PO DAILY Qty: 30 0RF Gut survival Probiotic 1 cap PO DAILY Qty: 30 0RF Rx Instructions: Scott spore daily to improve digestion ondansetron HCl 4 mg tablet 4 mg PO Q8H PRN (Reason: nausea and vomiting) Qty: 30 1RF ibuprofen 600 mg tablet 600 mg PO TID PRN (Reason: pain) Qty: 90 1RF triamcinolone acetonide 0.1 % cream See Rx Instructions topical BID Qty: 30 0RF Rx Instructions: apply small amount topically to affected area twice a day until resolved. Progesterone 75 mg PO .qhs Qty: 90 3RF Rx Instructions: Progesterone E4M 75 mg PO QHS Biest cream 0.25 mg topical DAILY Qty: 1 3RF Rx Instructions: Biesta 50:50 cream 0.25 mg topically Qam phentermine 15 mg capsule 30 mg PO DAILY Qty: 60 2RF Rx Instructions: must administer 2 hours after breakfast methocarbamol 500 mg tablet 500 mg PO TID PRN (Reason: muscle spasm) Qty: 30 3RF alprazolam 0.25 mg tablet 0.25 mg PO .QDAY PRN (Reason: anxiety) Qty: 30 3RF Rx Instructions: Take one tab daily as needed for anxiety. Referrals: Abraham Best MD [Primary Care Provider] - Stand Alone Forms: Patient Portal/API/Survey ED Sign-out <Fátima Pitt DO - Last Filed: 06/29/24 15:38> Cosign ED Attending Cosignature Attestation: I was immediately available in the department for consultation.
--- NOTE | 2024-06-29 12:32 | PC.NURSE ---
pt refusing IV; pt okay for lab to draw blood. lab paged.
[2024-06-29 12:54] LABS: Add Manual Diff / Slide Review NO; Basophils Absolute Auto 0 /uL (0-100); Basophils Percent Auto 0.9 % (0-2); Eosinophils Absolute Auto 100 /uL (0-450); Eosinophils Percent Auto 1.3 % (2-4); Hematocrit 39.7 % (36-46); Hemoglobin 13.6 g/dL (12.0-16.0); Lymphocytes Absolute Auto 1800 /uL (1100-4500); Lymphocytes Percent Auto 37.2 % (25-40); Mean Corpuscular HGB Conc 34.1 % (30-36); Mean Corpuscular Hemoglobin 30.5 PG (26-34); Mean Corpuscular Volume 89.5 fL (80-100); Monocytes Absolute Auto 300 /uL (0-900); Monocytes Percent Auto 6.4 % (3-14); Neutrophils Absolute Auto 2700 /uL (1500-7000); Neutrophils Percent Auto 54.2 % (50-75); Platelet Count 275 X10^3/uL (150-400); Red Blood Cell Count 4.44 X10^6/uL (4.0-5.2); Red Cell Distribution Width 12.3 % (11.6-14.8); White Blood Cell Count 4.9 X10^3/uL (4.5-11.0)
--- NOTE | 2024-06-29 13:00 | PC.NURSE ---
PA at bedside
[2024-06-29 13:05] LABS: INR 1.1 (0.9-1.3)
[2024-06-29 13:07] LABS: PTT Partial Thromboplastin Tim 33 SECONDS (25.1-36.5)
[2024-06-29 13:08] LABS: Alanine Aminotransferase 16 IU/L (<35); Albumin 4.9 g/dL (3.5-5.0); Albumin Globulin Ratio 1.7 (1.0-2.8); Alkaline Phosphatase 42 U/L (38-126); Aspartate Aminotransferase 26 IU/L (14-36); BUN Creatinine Ratio 16.2 (6-22); Bilirubin Total 0.5 mg/dL (0.2-1.3); Blood Urea Nitrogen 11 mg/dL (7-17); Calcium 9.2 mg/dL (8.4-10.2); Carbon Dioxide 27 mmol/L (22-32); Chloride 101 mmol/L (98-107); Estimated Glomerular Filt Rate > 60 mL/min (>60); Globulin 2.9 g/dL (1.7-4.1); Glucose 90 mg/dL (70-99); HEMOLYSIS < 15 (0-50); Potassium 3.8 mmol/L (3.4-5.1); Sodium 138 mmol/L (137-145); Total Protein 7.8 g/dL (6.3-8.2)
[2024-06-29 13:46] VITALS: PULSE 72; O2SAT 100
[2024-06-29 13:53] VITALS: BP 141/87; PULSE 76; RESP 16; O2SAT 99
[2024-06-29 14:00] VITALS: BP 131/80; PULSE 67; RESP 17; O2SAT 99
[2024-06-29 14:07] LABS: C-Reactive Protein Quant < 0.5 mg/dL (<1.0)
== END 2024-06-29 14:33 | disposition home or self-care (01) ==
PROVIDERS: Emergency Medicine; Emergency Provider Student in an Organized Health Care Education/Training Program; Family Provider Family Medicine; PCP Family Medicine
DX: K62.5 Hemorrhage of anus and rectum (principal)
CPT/HCPCS: 36415; 80053; 81003; 82272; 85025; 85610; 85730; 86140; 86850; 86900; 86901; 99283

== ENCOUNTER → 2024-06-30 08:46 | Outpatient (CLI) | payer OTHER, SELFPAY ==
--- NOTE | 2024-06-30 08:46 | DI.US.S_ITS ---
US breast LT limited: 06/30/2024. BI-RADS: 0 CLINICAL: 49-year old female for left diagnostic breast ultrasound. Tyrer-Cuzick lifetime risk of 10.7%. No personal or first-degree family history of breast cancer. Current reported family history of breast cancer: maternal grandmother and maternal aunt. The patient reports a palpable abnormality (less than 1 month) in the left breast. PRIOR EXAMS 09/10/2023, 06/11/2022, 03/05/2021, 09/22/2019, 05/13/2018, 03/05/2017, 02/08/2016, 11/30/2014. ULTRASOUND TECHNIQUE: Real-time arteaga scale and color doppler imaging of the area of clinical interest was performed with image documentation. ULTRASOUND FINDINGS Left: There is no sonographic abnormality in the area of clinical concern at 1 o'clock, 7 cm from the nipple. IMPRESSION: Left * Incomplete - Needs additional imaging evaluation. RECOMMENDATIONS Left * Further evaluation with diagnostic mammography (Of note, patient declined mammogram at time of imaging.). COMMENTS: Findings and recommendations were conveyed to the patient during today's evaluation. OVERALL ASSESSMENT CATEGORY BI-RADS-0: Incomplete - Need Additional Imaging Evaluation. ELECTRONICALLY SIGNED: Alanna Howard M.D. on 06/30/2024 at 09:53:30 AM PT Interpreting Station ID: [id number]
== END ==
PROVIDERS: Family Provider Family Medicine; PCP Family Medicine; Referring Provider Family Medicine; Visit Provider Family Medicine
DX: N63.20 Unspecified lump in the left breast, unspecified quadrant (principal); R92.8 Other abnormal and inconclusive findings on diagnostic imaging of breast; Z80.3 Family history of malignant neoplasm of breast
CPT/HCPCS: 76642

== ENCOUNTER → 2024-08-24 10:16 | Outpatient (CLI) | payer OTHER, SELFPAY ==
[2024-08-24 10:43] LABS: Add Manual Diff / Slide Review NO; Hematocrit 38.0 % (36-46); Hemoglobin 13.1 g/dL (12.0-16.0); Lymphocytes Absolute Auto 1600 /uL (1100-4500); Mean Corpuscular HGB Conc 34.4 % (30-36); Mean Corpuscular Hemoglobin 31.0 PG (26-34); Mean Corpuscular Volume 89.9 fL (80-100); Platelet Count 273 X10^3/uL (150-400)
[2024-08-24 11:33] LABS: Alanine Aminotransferase 13 IU/L (<35); Albumin 4.6 g/dL (3.5-5.0); Albumin Globulin Ratio 1.8 (1.0-2.8); Alkaline Phosphatase 47 U/L (38-126); Blood Urea Nitrogen 14 mg/dL (7-17); Calcium 9.4 mg/dL (8.4-10.2); Carbon Dioxide 26 mmol/L (22-32); Chloride 103 mmol/L (98-107); Cholesterol 224 mg/dL (140-199); Estimated Glomerular Filt Rate > 60 mL/min (>60); Globulin 2.6 g/dL (1.7-4.1); Glucose 97 mg/dL (70-99); HDL Cholesterol 74 mg/dL (40-60); HEMOLYSIS < 15 (0-50); Potassium 4.1 mmol/L (3.4-5.1); Sodium 137 mmol/L (137-145); Total Protein 7.2 g/dL (6.3-8.2); Triglycerides 81 mg/dL (35-150)
[2024-08-24 11:49] LABS: Follicle Stimulating Hormone 6.95 mIU/mL
[2024-08-24 12:03] LABS: TSH w/ Reflex to FT4 0.76 uIU/mL (0.47-4.68)
== END ==
PROVIDERS: Family Medicine; Family Provider Family Medicine; PCP Family Medicine; Referring Provider Family Medicine; Visit Provider Family Medicine
DX: Z00.00 Encounter for general adult medical examination without abnormal findings (principal); N95.1 Menopausal and female climacteric states; E78.5 Hyperlipidemia, unspecified; F41.9 Anxiety disorder, unspecified; E66.3 Overweight; R00.2 Palpitations
CPT/HCPCS: 36415; 80053; 80061; 82172; 82627; 82672; 83001; 84403; 84443; 85025

== ENCOUNTER → 2024-09-17 13:06 | Outpatient (CLI) | payer OTHER, SELFPAY ==
--- NOTE | 2024-09-17 13:08 | DI.MG.S_ITS ---
MM screening mammo BI: 09/17/2024. BI-RADS: 1 CLINICAL: 49-year old female for bilateral screening mammogram. Tyrer-Cuzick lifetime risk of 11.1%. No personal or first-degree family history of breast cancer. Current reported family history of breast cancer: maternal grandmother and maternal aunt. The patient reports that her palpable abnormality of the left breast from 06/30/2024 has resolved, and she is now asymptomatic. PRIOR EXAMS 09/10/2023, 06/11/2022, 03/05/2021, 09/22/2019. MAMMOGRAPHY TECHNIQUE: 2D and 3D (tomosynthesis) digital mammographic views obtained, with additional images as needed for full coverage. Current study was also evaluated with a Computer Aided Detection (CAD) system. DENSITY C. The breasts are heterogeneously dense, which may obscure small masses. MAMMOGRAPHY FINDINGS Bilateral: No suspicious mass, asymmetry, microcalcification, or other abnormality seen. IMPRESSION: * No evidence of malignancy. RECOMMENDATIONS Bilateral * Annual screening mammography. OVERALL ASSESSMENT CATEGORY BI-RADS-1: Negative. The [employer] recommends annual screening mammography beginning at age 40 for women with average risk of breast cancer. PRELIMINARILY ELECTRONICALLY SIGNED: Leigha Dupree M.D. on 09/17/2024 at 09:29:25 PM PT ELECTRONICALLY SIGNED: Leigha Dupree M.D. on 09/19/2024 at 12:48:54 AM PT Interpreting Station ID: [id number]
== END ==
LOC: MAMMO 13:07
PROVIDERS: Family Provider Family Medicine; PCP Family Medicine; Referring Provider Family Medicine; Visit Provider Family Medicine
DX: Z12.31 Encounter for screening mammogram for malignant neoplasm of breast (principal); R92.333 Mammographic heterogeneous density, bilateral breasts; Z80.3 Family history of malignant neoplasm of breast
CPT/HCPCS: 77063; 77067